=== PATIENT | female | born 1925 | race Caucasian/White ===

== ENCOUNTER 2016-09-15 13:12 | Inpatient (IN) | payer MEDICARE, OTHER ==
[~2016-09-15] VITALS: Ht 170.2 cm; Wt 111.1 kg
[2016-09-15] VITALS (10 sets, daily range): BP systolic 176–235; BP diastolic 72–102; PULSE 60–75; RESP 18–20; TEMP 97.1–98.2; O2SAT 94–97
[~2016-09-15 13:12] MED LIST: AMLO5TAB22 PO; ASPI81CH3; ATEN-102 PO; DOXA1 PO
[2016-09-15] MEDS ORDERED: DOXA4TAB3 PO (13:42)
[2016-09-15] MEDS ORDERED: HYDR10TA23 PO (13:42)
[2016-09-15] MEDS ORDERED: ATEN50TA PO (13:42)
[2016-09-15] MEDS ORDERED: LISI20TA PO (13:42)
--- NOTE | 2016-09-15 13:44 | PD ---
HPI Chief Complaint: Edema Time Seen by Provider: 13:31 Travel History International Travel<30 days: No (unknown) Contact w/Intl Traveler<30days: No (unknown) History of Present Illness HPI 89yo F with PMH of HTN presents to the ED with c/o tongue swelling at 8 or 9am today. Pt took her 4 HTN medications and then felt her tongue swell up. States that she has had similar tongue swelling 1 year ago but could not tell me any further information. As per our record, pt was admitted in 2014 for similar complaint and discharge with impression of angioedema. Denies any fever , chest pain, sob, n/v, abdominal pain, weakness or numbness. States swelling has improved and is not getting worst. PFSH Past Medical History Arthritis: Yes Asthma: No Autoimmune Disease: No Cancer: No Cardiovascular Problems: No Chest Pain: Yes COPD: No Diabetes: No Diminished Hearing: No Endocrine: No Genitourinary: No Hypertension: Yes Musculoskeletal: Yes Neurologic: No Psychiatric: No Reproductive: No Respiratory: No Menopausal: Yes Past Surgical History AICD: No Cardiac Surgery: No Ear Surgery: No Endocrine Surgery: No Eye Surgery: No Genitourinary Surgery: No Gynecologic Surgery: Yes (hysterectomy ) Oral Surgery: Yes (tonsils ) Pacemaker: No Thoracic Surgery: No Social History Alcohol Use: No Tobacco Use: No Substance Use: No Allergies-Medications (Allergen,Severity, Reaction): Coded Allergies: Lisinopril (Verified Allergy, Severe, Anaphylaxis, 01/02/15) Tetanus Immune Globulin (Verified Allergy, Severe, 01/01/15) Tetanus Toxoid (Verified Allergy, Severe, 01/01/15) Reported Meds & Prescriptions Reported Meds & Active Scripts Active Reported Hydralazine (Hydralazine HCl) 10 Mg Tab 10 Mg PO TID Take with a meal Doxazosin (Doxazosin Mesylate) 4 Mg Tab 4 Mg PO DAILY Atenolol 50 Mg Tab 50 Mg PO DAILY Lisinopril-Hctz 20-12.5 Mg Tab 1 Tab PO DAILY Review of Systems Except as stated in HPI: all other systems reviewed are Neg Physical Exam Narrative GENERAL: 89yo F not in distress. SKIN: Warm and dry. HEAD: Atraumatic. Normocephalic. EYES: Pupils equal and round. No scleral icterus. No injection or drainage. ENT: +Left tongue edema. Unable to visualize the uvula. Patent airway. NECK: Trachea midline. No JVD. CARDIOVASCULAR: Regular rate and rhythm. No murmur appreciated. RESPIRATORY: No accessory muscle use. Clear to auscultation. Breath sounds equal bilaterally. GASTROINTESTINAL: Abdomen soft, non-tender, nondistended. Hepatic and splenic margins not palpable. MUSCULOSKELETAL: No obvious deformities. No clubbing. No cyanosis. No edema. NEUROLOGICAL: Awake and alert. No obvious cranial nerve deficits. Motor grossly within normal limits. Normal speech. PSYCHIATRIC: Appropriate mood and affect; insight and judgment normal. Data Data Last Documented VS Vital Signs Date Time Temp Pulse Resp B/P Pulse Ox O2 Delivery O2 Flow Rate FiO2 09/15/16 15:27 64 18 232/97 97 Nasal Cannula 2 09/15/16 13:19 98.2 Orders Ecg Monitoring (09/15/16 13:40) Iv Access Insert/Monitor (09/15/16 13:40) Oximetry (09/15/16 13:40) Diphenhydramine Inj (Benadryl Inj) (09/15/16 13:45) Methylprednisolone So Succ Inj (Solumedr (09/15/16 13:45) Famotidine Inj (Pepcid Inj) (09/15/16 13:45) Sodium Chloride 0.9% Flush (Ns Flush) (09/15/16 13:45) Epinephrine (1:1000) Inj (Adrenalin (1:1 (09/15/16 13:45) Complete Blood Count With Diff (09/15/16 14:03) Basic Metabolic Panel (Bmp) (09/15/16 14:03) Electrocardiogram (09/15/16 ) Hydralazine Inj (Apresoline Inj) (09/15/16 15:45) Admit Order (Ed Use Only) (09/15/16 15:37) Labs Laboratory Tests Test 09/15/16 14:13 White Blood Count 9.7 TH/MM3 Red Blood Count 4.94 MIL/MM3 Hemoglobin 15.3 GM/DL Hematocrit 42.8 % Mean Corpuscular Volume 86.7 FL Mean Corpuscular Hemoglobin 30.9 PG Mean Corpuscular Hemoglobin 35.6 % Concent Red Cell Distribution Width 13.4 % Platelet Count 178 TH/MM3 Mean Platelet Volume 9.4 FL Neutrophils (%) (Auto) 72.8 % Lymphocytes (%) (Auto) 17.5 % Monocytes (%) (Auto) 7.0 % Eosinophils (%) (Auto) 2.1 % Basophils (%) (Auto) 0.6 % Neutrophils # (Auto) 7.1 TH/MM3 Lymphocytes # (Auto) 1.7 TH/MM3 Monocytes # (Auto) 0.7 TH/MM3 Eosinophils # (Auto) 0.2 TH/MM3 Basophils # (Auto) 0.1 TH/MM3 CBC Comment DIFF FINAL Differential Comment Sodium Level 141 MEQ/L Potassium Level 4.3 MEQ/L Chloride Level 104 MEQ/L Carbon Dioxide Level 27.9 MEQ/L Anion Gap 9 MEQ/L Blood Urea Nitrogen 15 MG/DL Creatinine 1.05 MG/DL Estimat Glomerular Filtration 49 ML/MIN Rate Random Glucose 99 MG/DL Calcium Level 8.9 MG/DL MDM Medical Decision Making Medical Screen Exam Complete: Yes Emergency Medical Condition: Yes Interpretation(s) EKG: NSR 67bpm. RBBB. LAD. LAFB. TWI V2, III. Differential Diagnosis Angioedema vs. anaphylaxis Narrative Course 89yo F with tongue swelling at 8 or 9am today. Pt had just taken all four of her BP medication which included a combination lisinopril medication. On exam, pt does have swelling on tongue, more on left. Airway is patent. Denies any sob. Pt was hypertensive at 235/102 but she had taken her 4 medications this morning so will monitor. BP still elevated so hydralazine 10mg IV given. Labs reviewed, unremarkable except mild elevated creatinine 1.05. Pt given Epinephrine 0.3mg IM, famotidine 20mg IV, methylprednisolone 125mg IV, and diphenhydramine 25mg IV. Pt placed on awake overnight monitor and reevaluated after medication. Tongue swelling has improved and speech is improved. However, will admit pt to ICU for airway monitoring. Discussed with Dr. Neri and accepted for admission. Critical Care Narrative Aggregate critical care time was 35 minutes. Time to perform other separately billable procedures was not included in the critical care time. My time did not include minutes spent treating any other patients simultaneously or on activities that did not directly contribute to the patient's treatment. The services I provided to this patient were to treat and/or prevent clinically significant deterioration that could result in: airway compromise and . I provided critical care services requiring my management, as noted below: Chart data review, documentation time, medication orders and management, vital sign assessments/reviewing monitor data, ordering and reviewing lab tests, ordering and interpreting/reviewing x-rays and diagnostic studies, care of the patient and discussing of the patient with the admitting physicians. Diagnosis Primary Impression: Angioedema Qualified Code: T78.3XXA - Angioedema, initial encounter Admitting Information Admitting Physician Requests: it Cleopatra Melendrez DO Sep 15, 2016 13:44
[2016-09-15] MEDS ORDERED: FAMOTIDINE 20 MG/2 ML VIAL IV PUSH ONE (13:45)
[2016-09-15] MEDS ORDERED: methylPREDNISolone SOD SUCC 125 MG/2 ML VIAL IVP ONE (13:45)
[2016-09-15] MEDS ORDERED: diphenhydrAMINE HCL 50 MG/ML VIAL IVP ONE (13:45)
[2016-09-15] MEDS ORDERED: SODIUM CHLORIDE 0.9% FLUSH 5 ML FLUSH IVF PRN (13:45)
[2016-09-15] MEDS ORDERED: EPINEPHrine HCL (1:1000) 1 MG/ML VIAL IM ONE (13:45)
[2016-09-15 14:22] LABS: AUTOMATED NEUTROPHIL # 7.1 TH/MM3 (1.8-7.7); BASOPHIL # 0.1 TH/MM3 (0-0.2); BASOPHIL % 0.6 % (0.0-2.0); EOSINOPHIL # 0.2 TH/MM3 (0-0.4); EOSINOPHIL % 2.1 % (0.0-4.0); HEMATOCRIT 42.8 % (35.0-46.0); HEMO FLAGS DIFF FINAL; LYMPH % 17.5 % (9.0-44.0); LYMPHOCYTE # 1.7 TH/MM3 (1.0-4.8); MEAN CELL VOLUME 86.7 FL (80.0-100.0); MEAN CORPUSCULAR HEMOGLOBIN 30.9 PG (27.0-34.0); MEAN CORPUSCULAR HGB CONC 35.6 % (32.0-36.0); NEUT % 72.8 % (16.0-70.0); PLATELET COUNT 178 TH/MM3 (150-450); RED BLOOD COUNT 4.94 MIL/MM3 (4.00-5.30); RED CELL DISTRIBUTION WIDTH 13.4 % (11.6-17.2); WHITE BLOOD COUNT 9.7 TH/MM3 (4.0-11.0)
[2016-09-15 14:34] LABS: BICARBONATE 27.9 MEQ/L (21.0-32.0); POTASSIUM 4.3 MEQ/L (3.5-5.1)
[2016-09-15] MEDS ORDERED: hydrALAZINE HCL 20 MG/ML VIAL IV PUSH ONE (15:45)
[2016-09-15] MEDS ORDERED: diphenhydrAMINE HCL 25 MG CAP PO PRN (16:45)
[2016-09-15] MEDS ORDERED: ONDANSETRON HCL 4 MG/2 ML VIAL IVP PRN (16:45)
[2016-09-15] MEDS ORDERED: ACETAMINOPHEN 325 MG TAB PO PRN (16:45)
[2016-09-15] MEDS ORDERED: SODIUM CHLORIDE 0.9% FLUSH 5 ML FLUSH FLUSH PRN (16:45)
[2016-09-15] MEDS ORDERED: NALOXONE HCL 0.4 MG/ML AMP IV PRN (16:45)
[2016-09-15] MEDS: SODIUM CHLOR 0.9% 1000 ML INJ 1,000 ML IV SCH (17:05)
[2016-09-15] MEDS: hydrALAZINE HCL 10 MG TAB PO SCH (17:05)
--- NOTE | 2016-09-15 18:27 | MH ---
cc: CINDY NEIR DATE OF ADMISSION 09/15/2016 DATE OF 12/19/[address] Esequiel Garcia. REASON FOR ADMISSION Tongue swelling this morning after taking medication. HISTORY OF PRESENT ILLNESS The patient is a very pleasant 84 year old female with significant past medical history of hypertension, dyslipidemia who came to the ER because of the above problem. As per patient, she took four of her medication this morning and after that she felt her tongue swelling up. She has a similar problem in 2014 for which she came to the ER and was admitted. At that time, it was resolved. After that, she was doing okay up until today and she had a similar problem again. When she came to the ER and evaluated by the ER physician, . ____, they gave her medication and now she is better. She has no more tongue swelling and has no shortness of breath or swallowing problem. She has had no dizziness or any other associated symptoms. She denies any nausea or vomiting, chest pain, diaphoresis, palpitations, cough, fever, chills. She has no itching. She has no rash. She denies any headache or dizziness. In 2014, she was admitted and discharged with angioedema. PAST MEDICAL HISTORY 1. Hypertension, 2. Dyslipidemia. PAST HISTORY 1. History of appendectomy. 2. Cystectomy, 3. Hysterectomy. MEDICATIONS Reviewed. Please see MAR. ALLERGIES REPORTED LISINOPRIL BUT PATIENT IS TAKING AND HYDROCHLOROTHIAZIDE. ALSO REPORTED AND TETANUS TOXOID.. REVIEW OF SYSTEMS Negative for 10 systems. SOCIAL HISTORY The patient does not smoke, drink or do any drugs. FAMILY HISTORY Noncontributory. PHYSICAL EXAMINATION GENERAL: The patient is alert and oriented x3 Overweight lying on bed without any apparent distress. VITAL SIGNS: The patient is afebrile, pulse is 68, respiratory rate 18, blood pressure was so 249/98, pulse ox 97% on 2 liters. HEENT: Atraumatic, normocephalic. Eyes - Negative conjunctival icterus. Mouth unremarkable. No swelling of the tongue, no ____noted in the mouth at present. NECK: Supple. Negative increase in JVD. Negative lymphadenopathy. CHEST: Clear to auscultation. CARDIOVASCULAR: S1, S2 audible. Unable to hear any S3 gallop. GI: Abdomen soft, no organomegaly. Positive bowel sounds. MUSCULOSKELETAL: No cyanosis. There is a 1+ pedal edema; as per patient this is chronic for her. EXAMINATION: No stridor noted. SKIN: Warm and dry. PSYCHIATRIC: Appropriate mood and affect. CELLOPHANE BATH MIXER: Grossly intact. On motor examination, tongue is within normal limits. LABORATORY DATA CBC within normal limits. BMP - creatinine 1.05, otherwise within normal limits. ASSESSMENT 1. Swelling of the tongue after taking medication angioedema versus anaphylaxis 2. Hypertension hypertensive urgency improving on medication, just given hydralazine 3. Dyslipidemia. PLAN Admitted to the [facility] as patient has no longer swelling. Continue home medications. We will hold Lisinopril. P.r.n. Basis IV hydralazine. H2 jessie. We will give a few more doses of steroid. Monitor blood pressure. Continue telemetry monitoring. Discussed with the patient. Discussed with ER physician. Condition is guarded. Further recommendation to follow as per patient progress. Cindy Neri MD JP/ /4:32 PM /5:55 PM
[2016-09-15] MEDS: cloNIDine HCL 0.1 MG TAB PO PRN (18:39)
--- NOTE | 2016-09-15 19:41 | EKG ---
Date Performed: 09/15/2016 Time Performed: 14:17:24 PTAGE: 89 years EKG: Sinus rhythm RIGHT BUNDLE BRANCH BLOCK LEFT ANTERIOR FASCICULAR BLOCK ABNORMAL ECG PREVIOUS TRACING : 01/02/2015 02.21 Compared to the previous tracing, no significant change in leads recorded on previous tracing DOCTOR: Hubert Vela Interpretating Date/Time 09/15/2016 19:40:35
[2016-09-15] MEDS: SODIUM CHLORIDE 0.9% FLUSH 5 ML FLUSH FLUSH SCH (21:00)
[2016-09-15] MEDS: FAMOTIDINE 20 MG TAB PO SCH (21:58)
[2016-09-15] MEDS: hydrALAZINE HCL 20 MG/ML VIAL IV PRN (21:59)
[2016-09-15] MEDS: methylPREDNISolone SOD SUCC 40 MG/1 ML VIAL IV PUSH SCH (21:59)
[2016-09-16] VITALS (12 sets, daily range): BP systolic 136–175; BP diastolic 62–77; PULSE 54–98; RESP 14–18; TEMP 97.8–98.6; O2SAT 91–97
[2016-09-16] MEDS ORDERED: niCARdipine 25 MG/NS 250 ML Vial2Bag or IV room IV SCH ×2 (03:15)
[2016-09-16] MEDS: methylPREDNISolone SOD SUCC 40 MG/1 ML VIAL IV PUSH SCH ×2 (05:07→13:13)
[2016-09-16 05:51] LABS: BICARBONATE 28.9 MEQ/L (21.0-32.0); POTASSIUM 3.7 MEQ/L (3.5-5.1)
[2016-09-16] MEDS: hydrALAZINE HCL 10 MG TAB PO SCH ×3 (09:05→18:21)
[2016-09-16] MEDS: ATENOLOL 50 MG TAB PO SCH (09:05)
[2016-09-16] MEDS: FAMOTIDINE 20 MG TAB PO SCH ×2 (09:05→19:49)
[2016-09-16] MEDS: SODIUM CHLORIDE 0.9% FLUSH 5 ML FLUSH FLUSH SCH ×2 (09:05→19:49)
[2016-09-16] MEDS: DOXAZOSIN MESYLATE 4 MG TAB PO SCH (09:06)
[2016-09-16] MEDS: SODIUM CHLOR 0.9% 1000 ML INJ 1,000 ML IV SCH (13:14)
--- NOTE | 2016-09-16 16:10 | HHI.PR ---
Subjective Remarks pt is feeling better offerinng nocomplaint ROS for 12 point system is unremarkable Objective Objective Results - Vital Signs Date Time Temp Pulse Resp B/P Pulse Ox O2 Delivery O2 Flow Rate FiO2 09/16/16 10:00 98 09/16/16 08:00 63 09/16/16 08:00 98.1 61 14 154/67 97 09/16/16 06:00 65 09/16/16 04:00 97.8 69 14 163/73 93 09/16/16 04:00 69 09/16/16 02:00 65 09/16/16 00:00 73 09/16/16 00:00 97.8 73 14 165/77 91 09/15/16 22:00 68 09/15/16 21:51 97.1 70 20 201/72 97 09/15/16 19:58 98.0 63 18 180/72 97 Nasal Cannula 2 09/15/16 18:35 71 18 192/86 97 Nasal Cannula 2 09/15/16 17:06 75 18 176/84 97 Nasal Cannula 2 09/15/16 16:42 68 18 189/81 97 Nasal Cannula 2 09/15/16 16:08 60 18 229/98 97 Nasal Cannula 2 I/O 09/15/16 09/15/16 09/15/16 09/16/16 09/16/16 09/16/16 07:00 15:00 23:00 07:00 15:00 23:00 Intake Total 300 ml 388 ml Output Total 450 ml 150 ml Balance -150 ml 238 ml Intake IV Total 300 ml 388 ml Output Urine Total 450 ml 150 ml # Voids 0 Result Diagram: 09/15/16 1413 09/16/16 0355 Other Results Laboratory Tests Test 09/15/16 09/16/16 21:40 03:55 Nasal Screen MRSA (PCR) NEGATIVE Sodium Level 141 Potassium Level 3.7 Chloride Level 103 Carbon Dioxide Level 28.9 Anion Gap 9 Blood Urea Nitrogen 15 Creatinine 0.88 Estimat Glomerular Filtration 61 Rate Random Glucose 140 Calcium Level 8.9 Physical Exam Physical Exam GENERAL: The patient is alert and oriented x3 Overweight lying on bed without any apparent distress. VITAL SIGNS: reviewed. HEENT: Atraumatic, normocephalic. Eyes - Negative conjunctival icterus. Mouth unremarkable. No swelling of the tongue, no noted in the mouth at present. NECK: Supple. Negative increase in JVD. Negative lymphadenopathy. CHEST: Clear to auscultation. CARDIOVASCULAR: S1, S2 audible. Unable to hear any S3 gallop. GI: Abdomen soft, no organomegaly. Positive bowel sounds. MUSCULOSKELETAL: No cyanosis. There is a 1+ pedal edema; as per patient this is chronic for her. c A/P Assessment and Plan 1. Swelling of the tongue after taking medication angioedema versus anaphylaxis 2. Hypertension hypertensive urgency improving on medication, just given hydralazine 3. Dyslipidemia. PLAN seen in ICU on nicardipin drip improving BP will taper it off as dicussed with rn Continue home medications. inc hydralazine P.r.n. Basis IV hydralazine. H2 jessie. dc steroid. Monitor blood pressure. Continue telemetry monitoring. Discussed with the patient and family at bedside". Discussed Rn Condition is guarded. Further recommendation to follow as per patient progress. Carl Neri MD Sep 16, 2016 16:10
[2016-09-16] MEDS: hydrALAZINE HCL 20 MG/ML VIAL IV PRN ×2 (16:16→23:12)
[2016-09-17] VITALS (7 sets, daily range): BP systolic 173–200; BP diastolic 75–89; PULSE 52–80; RESP 23–24; TEMP 98–98.6; O2SAT 94–97
[2016-09-17] MEDS: cloNIDine HCL 0.1 MG TAB PO PRN (04:09)
[2016-09-17] MEDS: FAMOTIDINE 20 MG TAB PO SCH (07:44)
[2016-09-17] MEDS: DOXAZOSIN MESYLATE 4 MG TAB PO SCH (07:44)
[2016-09-17] MEDS: hydrALAZINE HCL 10 MG TAB PO SCH (07:44)
[2016-09-17] MEDS: ATENOLOL 50 MG TAB PO SCH (07:45)
[2016-09-17] MEDS: SODIUM CHLOR 0.9% 1000 ML INJ 1,000 ML IV SCH (09:00)
[2016-09-17] MEDS: SODIUM CHLORIDE 0.9% FLUSH 5 ML FLUSH FLUSH SCH (09:00)
[2016-09-17] MEDS: hydrALAZINE HCL 20 MG/ML VIAL IV PRN (09:31)
[2016-09-17] MEDS ORDERED: hydrALAZINE HCL 25 MG TAB PO ONE (10:15)
[2016-09-17] MEDS ORDERED: hydrALAZINE HCL 25 MG TAB PO SCH (13:00)
[2016-09-17] MEDS ORDERED: hydrALAZINE HCL 10 MG TAB PO SCH (13:00)
--- NOTE | 2016-09-17 14:22 | HHI.PR ---
Subjective Remarks pt is feeling better offering no complaint ROS for 12 point system is unremarkable Objective Objective Results - Vital Signs Date Time Temp Pulse Resp B/P Pulse Ox O2 Delivery O2 Flow Rate FiO2 09/17/16 10:00 52 09/17/16 08:00 61 09/17/16 08:00 98.4 63 24 200/89 95 09/17/16 07:48 97 Nasal Cannula 2.00 09/17/16 06:00 55 09/17/16 04:00 98.6 60 24 195/85 96 09/17/16 04:00 60 09/17/16 02:00 63 09/17/16 00:00 80 09/17/16 00:00 98.0 80 23 173/75 94 09/16/16 22:00 65 09/16/16 20:00 98.0 66 17 175/73 96 09/16/16 20:00 66 09/16/16 18:00 63 09/16/16 16:00 54 09/16/16 16:00 98.6 63 18 136/62 97 I/O 09/16/16 09/16/16 09/16/16 09/17/16 09/17/16 09/17/16 07:00 15:00 23:00 07:00 15:00 23:00 Intake Total 388 ml 423 ml Output Total 150 ml 600 ml 550 ml 600 ml Balance 238 ml -177 ml -550 ml -600 ml Intake Oral 300 ml IV Total 388 ml 123 ml Output Urine Total 150 ml 600 ml 550 ml 600 ml # Voids 3 # Bowel Movements 1 Result Diagram: 09/15/16 1413 09/16/16 0355 Physical Exam Physical Exam GENERAL: The patient is alert and oriented x3 Overweight lying on bed without any apparent distress. VITAL SIGNS: reviewed. HEENT: Atraumatic, normocephalic. Eyes - Negative conjunctival icterus. Mouth unremarkable. No swelling of the tongue, no noted in the mouth at present. NECK: Supple. Negative increase in JVD. Negative lymphadenopathy. CHEST: Clear to auscultation. CARDIOVASCULAR: S1, S2 audible. Unable to hear any S3 gallop. GI: Abdomen soft, no organomegaly. Positive bowel sounds. MUSCULOSKELETAL: No cyanosis. There is a 1+ pedal edema; as per patient this is chronic for her. c A/P Assessment and Plan 1. Swelling of the tongue after taking medication angioedema versus anaphylaxis 2. Hypertension hypertensive urgency improving on medication, just given hydralazine 3. Dyslipidemia. PLAN seen in ICU off of nicardipin. Inc BP on po meds will adjust meds Continue home medications. inc hydralazine P.r.n. Basis IV hydralazine. H2 jessie. off of steroid. Monitor blood pressure. Continue telemetry monitoring. Discussed with the patient. Discussed Rn Condition is guarded. as Bp stable plan for dc home today Carl Neri MD Sep 17, 2016 14:22
[2016-09-17] MEDS ORDERED: HYDR25TA35 PO (14:29)
--- NOTE | 2016-09-17 14:30 | HHI.FF ---
Face to Face Verification Diagnosis: (1) Hypertension (2) Angioedema (3) Hypertensive urgency Home Health Nursing Order: Medical education Medication education-adverse effect Nursing assessment with vital signs I have seen patient Birgit Rojo on 09/17/16. My clinical findings support the need for the requested home health care services because: Ltd mobility - disease progression I certify that my clinical findings support that this patient is homebound because: Unable to use public transportation Carl Neri MD Sep 17, 2016 14:30
--- NOTE | 2016-09-17 14:34 | HHI.DS ---
Discharge Summary Admission Date Sep 15, 2016 at 15:39 Admitting Diagnosis Angioedema vs. anaphylaxis (1) Angioedema Diagnosis: Principal (2) Hypertensive urgency Diagnosis: Principal (3) Hypertension Diagnosis: Principal Brief History pt is admitted bc of high blood presure and angioedloma on admission. she had htn urgency. admitted to icu on nicardipin drip. which was taperd off and on po meds now bp is stable. her angioedoma / severe allergic reaction is better now. as overall stable will dc home to follow pcp with [facility] CBC/BMP: 09/15/16 1413 09/16/16 0355 Significant Findings Laboratory Tests Test 09/15/16 09/16/16 14:13 03:55 Neutrophils (%) (Auto) 72.8 % (16.0-70.0) Creatinine 1.05 MG/DL (0.50-1.00) Estimat Glomerular Filtration 49 ML/MIN (>89) 61 ML/MIN (>89) Rate Random Glucose 140 MG/DL (74-106) Pt Condition on Discharge: Stable Discharge Disposition: Disch w/ Home Health Serv Discharge Instructions DIET: Follow Instructions for: Heart Healthy Diet Activities you can perform: Weight Bearing as [place] Follow up Referrals: PCP Follow-up - 1 Week New Medications: Hydralazine (Hydralazine) 25 Mg Tab 25 MG PO QID htn #120 TAB Continued Medications: Atenolol (Atenolol) 50 Mg Tab 50 MG PO DAILY Blood Pressure Management #30 Ref 0 TAB Doxazosin (Doxazosin) 4 Mg Tab 4 MG PO DAILY TAB Discontinued Medications: Hydralazine (Hydralazine) 10 Mg Tab 10 MG PO TID Take with a meal Blood Pressure Management Ref 0 TAB Lisinopril-Hctz (Lisinopril-Hctz) 20-12.5 Mg Tab 1 TAB PO DAILY Blood Pressure Management #30 Ref 0 TAB Carl Neri MD Sep 17, 2016 14:34
== END 2016-09-17 16:30 | disposition home health service (06) | DRG 916 ==
LOC: NEPA 13:12 → NEDA 15:39 → HIMW 21:30
PROVIDERS: ADMIT Specialist; ATTEND Specialist
DX: T78.3XXA Angioneurotic edema, initial encounter (principal); I16.0 Hypertensive urgency; T50.995A Adverse effect of other drugs, medicaments and biological substances, initial encounter; I10 Essential (primary) hypertension; E78.5 Hyperlipidemia, unspecified; E66.3 Overweight; Z68.38 Body mass index [BMI] 38.0-38.9, adult
CPT/HCPCS: 80048; 85025; 87641; 93005; 96372; 96374; 96375; J0171; J0360; J1200; J2920; J2930; J7030; J7050